=== PATIENT | female | born 1980 | race Caucasian/White ===

== ENCOUNTER → 2017-05-13 | Outpatient (CLI) | payer OTHER, BC ==
[~2017-05-13] MED LIST: CLONAZEPAM 1 MG1 M1 PO; DEPO-PROVE150 MG/1 M IM; DIPHENHYDRAM50 MG/M2 IM; ENDOCET 10-3251 EACH PO; FENTANYL 1100 MCG/HR TRANSDERM; FENTANYL PA50 MCG/HR TRANSDERM; MARINOL5 MG PO; MAXALT MLT10 MG PO; ZOFRAN8 MG PO
== END ==
LOC: HYPER 05-06 16:52
DX: L02.31 Cutaneous abscess of buttock (principal); R63.5 Abnormal weight gain; R10.12 Left upper quadrant pain; R56.9 Unspecified convulsions; K21.9 Gastro-esophageal reflux disease without esophagitis; E78.79 Other disorders of bile acid and cholesterol metabolism; R70.0 Elevated erythrocyte sedimentation rate; R11.0 Nausea; D64.9 Anemia, unspecified; J32.9 Chronic sinusitis, unspecified; F41.0 Panic disorder [episodic paroxysmal anxiety]; G62.9 Polyneuropathy, unspecified; Q45.3 Other congenital malformations of pancreas and pancreatic duct; G47.00 Insomnia, unspecified; L70.0 Acne vulgaris; D84.9 Immunodeficiency, unspecified; K29.70 Gastritis, unspecified, without bleeding; J30.9 Allergic rhinitis, unspecified; G44.009 Cluster headache syndrome, unspecified, not intractable; G43.909 Migraine, unspecified, not intractable, without status migrainosus

== ENCOUNTER → 2017-05-27 | Outpatient (CLI) | payer OTHER, BC | LOC: HYPER 06:58 | DX: L02.31 Cutaneous abscess of buttock (principal); R63.5 Abnormal weight gain; R10.12 Left upper quadrant pain; R56.9 Unspecified convulsions; K21.9 Gastro-esophageal reflux disease without esophagitis; E78.79 Other disorders of bile acid and cholesterol metabolism; R70.0 Elevated erythrocyte sedimentation rate; R11.0 Nausea; D64.9 Anemia, unspecified; J32.9 Chronic sinusitis, unspecified; F41.0 Panic disorder [episodic paroxysmal anxiety]; G62.9 Polyneuropathy, unspecified; Q45.3 Other congenital malformations of pancreas and pancreatic duct; G47.00 Insomnia, unspecified ==

== ENCOUNTER → 2017-06-14 | Outpatient (CLI) | payer OTHER, BC | LOC: HYPER 06:44 | DX: L02.31 Cutaneous abscess of buttock (principal) ==

== ENCOUNTER → 2017-06-29 | Outpatient (CLI) | payer OTHER, BC | LOC: HYPER 07:10 | DX: L02.31 Cutaneous abscess of buttock (principal); G43.909 Migraine, unspecified, not intractable, without status migrainosus ==

== ENCOUNTER → 2017-08-17 | Outpatient (CLI) | payer OTHER, BC | LOC: HYPER 06:47 | DX: T81.31XD Disruption of external operation (surgical) wound, not elsewhere classified, subsequent encounter (principal); G43.909 Migraine, unspecified, not intractable, without status migrainosus; Y83.8 Other surgical procedures as the cause of abnormal reaction of the patient, or of later complication, without mention of misadventure at the time of the procedure ==

== ENCOUNTER → 2017-08-31 | Outpatient (CLI) | payer OTHER, BC ==
[~2017-08-31] MED LIST changes: +FENTANYL PATCH75 MCG TRANSDERM; +FOLIC ACID1 MG PO; +OXYCODONE HCL10 MG PO; +PROTONIX40 M1 PO; +TRIAMTERENE/HCT1 CA1 PO; +VITAMIN B-6100 MG PO
== END ==
LOC: HYPER 06:52
DX: T81.31XD Disruption of external operation (surgical) wound, not elsewhere classified, subsequent encounter (principal); R63.5 Abnormal weight gain; R10.12 Left upper quadrant pain; R56.9 Unspecified convulsions; K21.9 Gastro-esophageal reflux disease without esophagitis; E78.79 Other disorders of bile acid and cholesterol metabolism; R70.0 Elevated erythrocyte sedimentation rate; R11.0 Nausea; D64.9 Anemia, unspecified; J32.9 Chronic sinusitis, unspecified; F41.0 Panic disorder [episodic paroxysmal anxiety]; G62.9 Polyneuropathy, unspecified; Q45.3 Other congenital malformations of pancreas and pancreatic duct; G47.00 Insomnia, unspecified; L70.0 Acne vulgaris; D84.9 Immunodeficiency, unspecified; K29.70 Gastritis, unspecified, without bleeding; J30.9 Allergic rhinitis, unspecified; G43.909 Migraine, unspecified, not intractable, without status migrainosus; G44.009 Cluster headache syndrome, unspecified, not intractable; Y83.8 Other surgical procedures as the cause of abnormal reaction of the patient, or of later complication, without mention of misadventure at the time of the procedure

== ENCOUNTER → 2017-09-29 | Outpatient (CLI) | payer OTHER, BC | LOC: HYPER 06:56 | DX: T81.31XD Disruption of external operation (surgical) wound, not elsewhere classified, subsequent encounter (principal); L02.31 Cutaneous abscess of buttock; R63.5 Abnormal weight gain; R10.12 Left upper quadrant pain; R56.9 Unspecified convulsions; K21.9 Gastro-esophageal reflux disease without esophagitis; R70.0 Elevated erythrocyte sedimentation rate; R11.0 Nausea; D64.9 Anemia, unspecified; J32.9 Chronic sinusitis, unspecified; F41.0 Panic disorder [episodic paroxysmal anxiety]; G62.9 Polyneuropathy, unspecified; G47.00 Insomnia, unspecified; L70.0 Acne vulgaris; D84.9 Immunodeficiency, unspecified; K29.70 Gastritis, unspecified, without bleeding; J30.9 Allergic rhinitis, unspecified; G43.909 Migraine, unspecified, not intractable, without status migrainosus; Y83.8 Other surgical procedures as the cause of abnormal reaction of the patient, or of later complication, without mention of misadventure at the time of the procedure ==

== ENCOUNTER → 2017-10-13 | Outpatient (CLI) | payer OTHER, BC | LOC: HYPER 06:51 | DX: T81.31XD Disruption of external operation (surgical) wound, not elsewhere classified, subsequent encounter (principal); L02.31 Cutaneous abscess of buttock; R63.5 Abnormal weight gain; R10.12 Left upper quadrant pain; R56.9 Unspecified convulsions; K21.9 Gastro-esophageal reflux disease without esophagitis; R70.0 Elevated erythrocyte sedimentation rate; R11.0 Nausea; D64.9 Anemia, unspecified; J32.9 Chronic sinusitis, unspecified; F41.0 Panic disorder [episodic paroxysmal anxiety]; G62.9 Polyneuropathy, unspecified; G47.00 Insomnia, unspecified; L70.0 Acne vulgaris; K29.70 Gastritis, unspecified, without bleeding; G43.909 Migraine, unspecified, not intractable, without status migrainosus; Y83.8 Other surgical procedures as the cause of abnormal reaction of the patient, or of later complication, without mention of misadventure at the time of the procedure ==

== ENCOUNTER → 2017-10-27 | Outpatient (CLI) | payer OTHER, BC | LOC: HYPER 06:49 | DX: T81.31XD Disruption of external operation (surgical) wound, not elsewhere classified, subsequent encounter (principal); L02.31 Cutaneous abscess of buttock; Y83.8 Other surgical procedures as the cause of abnormal reaction of the patient, or of later complication, without mention of misadventure at the time of the procedure ==

== ENCOUNTER → 2017-11-10 | Outpatient (CLI) | payer OTHER, BC | LOC: HYPER 07:07 | DX: T81.31XD Disruption of external operation (surgical) wound, not elsewhere classified, subsequent encounter (principal); L02.31 Cutaneous abscess of buttock; G43.909 Migraine, unspecified, not intractable, without status migrainosus; Z90.49 Acquired absence of other specified parts of digestive tract; Y83.8 Other surgical procedures as the cause of abnormal reaction of the patient, or of later complication, without mention of misadventure at the time of the procedure ==

== ENCOUNTER → 2017-11-24 | Outpatient (CLI) | payer OTHER, BC | LOC: HYPER 06:44 | DX: T81.31XD Disruption of external operation (surgical) wound, not elsewhere classified, subsequent encounter (principal); L02.31 Cutaneous abscess of buttock; E78.79 Other disorders of bile acid and cholesterol metabolism; K21.9 Gastro-esophageal reflux disease without esophagitis; J32.9 Chronic sinusitis, unspecified; R10.12 Left upper quadrant pain; F41.0 Panic disorder [episodic paroxysmal anxiety]; G62.9 Polyneuropathy, unspecified; Q45.3 Other congenital malformations of pancreas and pancreatic duct; G47.00 Insomnia, unspecified; G43.909 Migraine, unspecified, not intractable, without status migrainosus; Y83.8 Other surgical procedures as the cause of abnormal reaction of the patient, or of later complication, without mention of misadventure at the time of the procedure ==

== ENCOUNTER → 2017-12-07 | Outpatient (CLI) | payer OTHER, BC | LOC: HYPER 06:51 | DX: T81.31XD Disruption of external operation (surgical) wound, not elsewhere classified, subsequent encounter (principal); L02.31 Cutaneous abscess of buttock; R63.5 Abnormal weight gain; R10.12 Left upper quadrant pain; R26.9 Unspecified abnormalities of gait and mobility; K21.9 Gastro-esophageal reflux disease without esophagitis; E78.79 Other disorders of bile acid and cholesterol metabolism; R70.0 Elevated erythrocyte sedimentation rate; R11.0 Nausea; F41.0 Panic disorder [episodic paroxysmal anxiety]; G47.00 Insomnia, unspecified; L70.0 Acne vulgaris; J30.9 Allergic rhinitis, unspecified; Y83.8 Other surgical procedures as the cause of abnormal reaction of the patient, or of later complication, without mention of misadventure at the time of the procedure ==

== ENCOUNTER → 2017-12-22 | Outpatient (CLI) | payer OTHER, BC | LOC: HYPER 07:07 | DX: T81.31XD Disruption of external operation (surgical) wound, not elsewhere classified, subsequent encounter (principal); E78.79 Other disorders of bile acid and cholesterol metabolism; K21.9 Gastro-esophageal reflux disease without esophagitis; D64.9 Anemia, unspecified; Q45.3 Other congenital malformations of pancreas and pancreatic duct; G47.00 Insomnia, unspecified; D84.9 Immunodeficiency, unspecified; K29.70 Gastritis, unspecified, without bleeding; R70.0 Elevated erythrocyte sedimentation rate; R10.12 Left upper quadrant pain; G43.909 Migraine, unspecified, not intractable, without status migrainosus; G62.9 Polyneuropathy, unspecified; J30.9 Allergic rhinitis, unspecified; J32.9 Chronic sinusitis, unspecified; F41.0 Panic disorder [episodic paroxysmal anxiety]; Y83.8 Other surgical procedures as the cause of abnormal reaction of the patient, or of later complication, without mention of misadventure at the time of the procedure ==

== ENCOUNTER → 2018-03-02 | Outpatient (CLI) | payer OTHER, BC | LOC: HYPER 07:09 | DX: T81.31XD Disruption of external operation (surgical) wound, not elsewhere classified, subsequent encounter (principal); L02.31 Cutaneous abscess of buttock; R63.5 Abnormal weight gain; R56.9 Unspecified convulsions; K21.9 Gastro-esophageal reflux disease without esophagitis; E78.79 Other disorders of bile acid and cholesterol metabolism; R70.0 Elevated erythrocyte sedimentation rate; R11.0 Nausea; D64.9 Anemia, unspecified; J32.9 Chronic sinusitis, unspecified; F41.0 Panic disorder [episodic paroxysmal anxiety]; G62.9 Polyneuropathy, unspecified; Q45.3 Other congenital malformations of pancreas and pancreatic duct; G47.00 Insomnia, unspecified; L70.0 Acne vulgaris; D84.9 Immunodeficiency, unspecified; K29.70 Gastritis, unspecified, without bleeding; J30.9 Allergic rhinitis, unspecified; G43.909 Migraine, unspecified, not intractable, without status migrainosus; Y83.8 Other surgical procedures as the cause of abnormal reaction of the patient, or of later complication, without mention of misadventure at the time of the procedure ==

== ENCOUNTER → 2019-07-27 | Outpatient (CLI) | payer OTHER, BC | LOC: HYPER 05:17 | DX: T81.31XD Disruption of external operation (surgical) wound, not elsewhere classified, subsequent encounter (principal); L02.31 Cutaneous abscess of buttock; L98.412 Non-pressure chronic ulcer of buttock with fat layer exposed; G43.909 Migraine, unspecified, not intractable, without status migrainosus; R56.9 Unspecified convulsions; F41.9 Anxiety disorder, unspecified; F32.9 Major depressive disorder, single episode, unspecified; Z90.49 Acquired absence of other specified parts of digestive tract; Y83.8 Other surgical procedures as the cause of abnormal reaction of the patient, or of later complication, without mention of misadventure at the time of the procedure ==

== ENCOUNTER 2019-07-28 15:08 | Emergency (ER) | payer OTHER, BC ==
[~2019-07-28] VITALS: Ht 154.9 cm; Wt 65.8 kg
[2019-07-28 16:46] VITALS: BP 126/74
== END 2019-07-28 16:51 | disposition home or self-care (01) ==
LOC: ER 15:08
DX: L02.31 Cutaneous abscess of buttock (principal); K21.9 Gastro-esophageal reflux disease without esophagitis; I10 Essential (primary) hypertension; G43.909 Migraine, unspecified, not intractable, without status migrainosus; Z48.01 Encounter for change or removal of surgical wound dressing; Z90.49 Acquired absence of other specified parts of digestive tract; Z86.2 Personal history of diseases of the blood and blood-forming organs and certain disorders involving the immune mechanism; Z86.14 Personal history of Methicillin resistant Staphylococcus aureus infection; Z88.6 Allergy status to analgesic agent; Z88.1 Allergy status to other antibiotic agents; Z88.5 Allergy status to narcotic agent; Z91.041 Radiographic dye allergy status; Z88.2 Allergy status to sulfonamides

== ENCOUNTER → 2019-08-02 | Outpatient (CLI) | payer OTHER, BC | LOC: HYPER | DX: T81.31XD Disruption of external operation (surgical) wound, not elsewhere classified, subsequent encounter (principal); L98.412 Non-pressure chronic ulcer of buttock with fat layer exposed; L02.31 Cutaneous abscess of buttock; G43.909 Migraine, unspecified, not intractable, without status migrainosus; K21.9 Gastro-esophageal reflux disease without esophagitis; F41.9 Anxiety disorder, unspecified; F32.9 Major depressive disorder, single episode, unspecified; Z90.49 Acquired absence of other specified parts of digestive tract; Y83.8 Other surgical procedures as the cause of abnormal reaction of the patient, or of later complication, without mention of misadventure at the time of the procedure ==

== ENCOUNTER → 2019-08-16 | Outpatient (CLI) | payer OTHER, BC | LOC: HYPER 16:55 | DX: T81.31XD Disruption of external operation (surgical) wound, not elsewhere classified, subsequent encounter (principal); L98.412 Non-pressure chronic ulcer of buttock with fat layer exposed; L02.31 Cutaneous abscess of buttock; G43.909 Migraine, unspecified, not intractable, without status migrainosus; K21.9 Gastro-esophageal reflux disease without esophagitis; F41.9 Anxiety disorder, unspecified; F32.9 Major depressive disorder, single episode, unspecified; Z90.49 Acquired absence of other specified parts of digestive tract; Y83.8 Other surgical procedures as the cause of abnormal reaction of the patient, or of later complication, without mention of misadventure at the time of the procedure ==

== ENCOUNTER → 2019-08-31 | Outpatient (CLI) | payer OTHER, BC | LOC: HYPER 11:03 | DX: T81.31XD Disruption of external operation (surgical) wound, not elsewhere classified, subsequent encounter (principal); L97.412 Non-pressure chronic ulcer of right heel and midfoot with fat layer exposed; L02.31 Cutaneous abscess of buttock; G43.909 Migraine, unspecified, not intractable, without status migrainosus; R56.9 Unspecified convulsions; F41.9 Anxiety disorder, unspecified; F32.9 Major depressive disorder, single episode, unspecified; Z90.49 Acquired absence of other specified parts of digestive tract; Y83.8 Other surgical procedures as the cause of abnormal reaction of the patient, or of later complication, without mention of misadventure at the time of the procedure ==

== ENCOUNTER → 2019-09-14 | Outpatient (CLI) | payer OTHER, BC | LOC: HYPER 15:20 | DX: T81.31XD Disruption of external operation (surgical) wound, not elsewhere classified, subsequent encounter (principal); L98.412 Non-pressure chronic ulcer of buttock with fat layer exposed; L02.31 Cutaneous abscess of buttock; G43.909 Migraine, unspecified, not intractable, without status migrainosus; F41.9 Anxiety disorder, unspecified; F32.9 Major depressive disorder, single episode, unspecified; Z90.49 Acquired absence of other specified parts of digestive tract; Y83.8 Other surgical procedures as the cause of abnormal reaction of the patient, or of later complication, without mention of misadventure at the time of the procedure ==

== ENCOUNTER → 2019-09-25 | Outpatient (CLI) | payer OTHER, BC | LOC: HYPER 14:03 | DX: T81.31XD Disruption of external operation (surgical) wound, not elsewhere classified, subsequent encounter (principal); L98.412 Non-pressure chronic ulcer of buttock with fat layer exposed; L02.31 Cutaneous abscess of buttock; G43.909 Migraine, unspecified, not intractable, without status migrainosus; G62.9 Polyneuropathy, unspecified; K21.9 Gastro-esophageal reflux disease without esophagitis; F32.9 Major depressive disorder, single episode, unspecified; F41.9 Anxiety disorder, unspecified; Z90.49 Acquired absence of other specified parts of digestive tract; Y83.8 Other surgical procedures as the cause of abnormal reaction of the patient, or of later complication, without mention of misadventure at the time of the procedure ==

== ENCOUNTER → 2019-10-09 | Outpatient (CLI) | payer OTHER, BC | LOC: HYPER 12:20 | DX: T86.828 Other complications of skin graft (allograft) (autograft) (principal); T81.31XD Disruption of external operation (surgical) wound, not elsewhere classified, subsequent encounter; L98.412 Non-pressure chronic ulcer of buttock with fat layer exposed; L02.31 Cutaneous abscess of buttock; G62.9 Polyneuropathy, unspecified; F41.9 Anxiety disorder, unspecified; F32.9 Major depressive disorder, single episode, unspecified; K21.9 Gastro-esophageal reflux disease without esophagitis; G47.00 Insomnia, unspecified; G43.909 Migraine, unspecified, not intractable, without status migrainosus; Z90.49 Acquired absence of other specified parts of digestive tract; Y83.8 Other surgical procedures as the cause of abnormal reaction of the patient, or of later complication, without mention of misadventure at the time of the procedure; Y83.2 Surgical operation with anastomosis, bypass or graft as the cause of abnormal reaction of the patient, or of later complication, without mention of misadventure at the time of the procedure ==

== ENCOUNTER → 2019-10-12 | Outpatient (CLI) | payer OTHER, BC | LOC: HYPER 10:02 | DX: T81.31XD Disruption of external operation (surgical) wound, not elsewhere classified, subsequent encounter (principal); L98.412 Non-pressure chronic ulcer of buttock with fat layer exposed; L02.31 Cutaneous abscess of buttock; G43.909 Migraine, unspecified, not intractable, without status migrainosus; K21.9 Gastro-esophageal reflux disease without esophagitis; F41.9 Anxiety disorder, unspecified; F32.9 Major depressive disorder, single episode, unspecified; Z90.49 Acquired absence of other specified parts of digestive tract; Y83.8 Other surgical procedures as the cause of abnormal reaction of the patient, or of later complication, without mention of misadventure at the time of the procedure ==

== ENCOUNTER → 2019-10-24 | Outpatient (CLI) | payer OTHER, BC | LOC: HYPER 11:06 | DX: T81.31XD Disruption of external operation (surgical) wound, not elsewhere classified, subsequent encounter (principal); L98.412 Non-pressure chronic ulcer of buttock with fat layer exposed; L02.31 Cutaneous abscess of buttock; G43.909 Migraine, unspecified, not intractable, without status migrainosus; F41.9 Anxiety disorder, unspecified; F32.9 Major depressive disorder, single episode, unspecified; Z90.49 Acquired absence of other specified parts of digestive tract; Y83.8 Other surgical procedures as the cause of abnormal reaction of the patient, or of later complication, without mention of misadventure at the time of the procedure ==

== ENCOUNTER 2019-10-31 16:25 | Inpatient (IN) | payer OTHER, BC ==
[~2019-10-31] VITALS: Ht 154.9 cm; Wt 64.3 kg
--- NOTE | ~2019-10-31 | HC ---
[facility] [place] [address] CONSULTATION Name: YEN MARSHALL Judith Room #: 453-P ADM IN M.R.#: [id number] Admission: 10/31/19 Attend Phys: Delroy Ovalle MD Discharge: Date of : 78 Report #: [id number] THIS REPORT FOR: cc: JESUSITA - Kay family physician/PCP JESUSITA - Kay family physician/PCP Eliceo Almanza MD ~ THIS REPORT FOR: //name// CC: Delroy MC physician/PCP DATE OF SERVICE: 11/01/2019 ATTENDING PHYSICIAN: Dr. Ovalle. CONSULTING PHYSICIAN: Dr. Almanza. REASON FOR CONSULTATION: Bilateral gluteal abscesses. ASSESSMENT: Bilateral gluteal wounds with associated abscess. RECOMMENDATIONS: 1. Thank you for the consultation. I will follow along. 2. Planning for incision and debridement tomorrow at 7:30 a.m. 3. N.p.o. at midnight for procedure. HISTORY OF PRESENT ILLNESS: The patient is a 39-year-old female who I met in clinic last week. The patient has developed worsening gluteal wounds with associated abscesses. She is hospitalized for further treatment. PAST MEDICAL HISTORY: 1. History of MRSA. 2. GERD. 3. Migraines. 4. Seizures. 5. Anemia. 6. Chronic pancreatitis. 7. Depression/anxiety. 8. Hiatal hernia. 9. IgG deficiency. PAST SURGICAL HISTORY: 1. Laparoscopic cholecystectomy. 2. Right knee arthroplasty. 3. Sinus surgery. 4. Oral surgery. [facility] [place] [address] [place] [address] CONSULTATION Name: YEN MARSHALL Judith Room #: 453-P [facility] IN M.R.#: [id number] Admission: 10/31/19 Attend Phys: Delroy Ovalle MD Discharge: Date of : 78 Report #: [id number] 5. Bilateral buttock wound debridements. 6. ERCP with stent placement. 7. Kidney stones. 8. EGD. SOCIAL HISTORY: Denies use of alcohol, tobacco or recreational drugs. FAMILY HISTORY: Denies coagulopathy or malignancy. REVIEW OF SYSTEMS: CONSTITUTIONAL: No fever. No chills. HEENT: Denies blurring of vision, double vision, headaches, hearing loss, sinus drainage or sore throat. Denies blurring of vision, double vision, headaches, hearing loss, sinus drainage or sore throat. CARDIOVASCULAR: Denies chest pain, palpitations, orthopnea or paroxysmal nocturnal dyspnea. RESPIRATORY: Denies cough, wheezing, hemoptysis, or shortness of air. GASTROINTESTINAL: No nausea. No vomiting. No diarrhea. No Heartburn. No nausea. No vomiting. No diarrhea. No Heartburn. GENITOURINARY: Denies dysuria or hematuria or kidney stones. No urinary frequency, urgency or incontinence. Denies dysuria or hematuria or kidney stones. No urinary frequency, urgency or incontinence. MUSCULOSKELETAL: No joint pain. No muscle pain. NEUROLOGICAL: Denies tremor, stroke or seizure. Denies tremor, stroke or seizure. HEMATOLOGIC/LYMPHATICS: Denies easy bruising, easy bleeding or enlarged lymph nodes. SKIN: Please see above and below ENDOCRINE: No heat or cold intolerance PSYCHIATRIC: Denies depression, anxiety, or schizophrenia. PHYSICAL EXAMINATION: VITAL SIGNS: Temperature 36.8, pulse 78, respiratory rate 17, blood pressure 101/57, pulse ox 99% on room air. GENERAL: No apparent distress, alert and oriented x3. HEENT: PERRLA, EOMI, MMM, NCAT NECK: Supple. No LAD CARDIOVASCULAR: Regular rhythm and rate. Hemodynamically stable. Normal capillary refill. Regular rhythm and rate. Hemodynamically stable. Normal capillary refill. PULMONARY: Nonlabored. Clear to auscultation bilaterally ABDOMEN: Soft, nontender to palpation, no guarding, no rigidity, no rebound tenderness, no hernias. EXTREMITIES: Calves soft, nontender, no edema. SKIN: Bilateral large gluteal wounds with associated tenderness to palpation and fluctuance. No current drainage from either wound. [address] [address] CONSULTATION Name: YEN MARSHALL Judith Room #: 453-P [facility] IN .R.#: [id number] Admission: 10/31/19 Attend Phys: Delroy Ovalle MD Discharge: Date of : 78 Report #: [id number] PSYCHIATRIC: Normal mood and affect Normal mood and affect NEUROLOGICAL: Grossly intact. CN II-XII grossly intact. MUSCULOSKELETAL: 5/5 strength in upper extremities and lower extremities bilaterally LYMPHATICS: No cervical, inguinal, or supraclavicular lymphadenopathy. LABORATORY DATA: White blood count 11.2, hemoglobin 8.7, hematocrit 27.9, platelets 465. Sodium 138, potassium 3.7, creatinine 0.9. IMAGING: CT of the pelvis, impression: Bilateral gluteal abscesses with soft tissue ulcer seen on the right as described above with extension of the infection/inflammation in the anterior compartment of the proximal lower extremities bilaterally without osseous erosion or bony destruction. By: [id number] Eliceo Almanza MD /nt
[~2019-10-31 16:25] MED LIST changes: -BENADRYL25 MG IV PUSH; -FLONASE 0.05%50 MCG NARES; -LOTRISONE CREAM15 GM TP; -OXYCODONE HCL E10 MG PO
[2019-10-31 18:44] LABS: HEMATOCRIT 27.9 % (37.0-47.0); HEMOGLOBIN 8.7 gm/dL (12.0-15.0); MCH 24.6 pg (26.0-34.0); MCHC 31.3 g/dL (28.0-37.0); MCV 78.6 fL (80.0-100.0); RBC 3.55 mil/uL (4.20-5.00); RDW 17.3 % (10.5-14.5); WBC 11.2 thou/uL (4.0-11.0)
[2019-10-31] MEDS ORDERED: MAXALT MLT10 MG PO (18:45)
[2019-10-31 19:00] LABS: CREATININE 0.9 mg/dL (0.6-1.0); POTASSIUM 3.7 mmol/L (3.5-5.1)
--- NOTE | 2019-10-31 19:13 | NUR ---
VASCULAR ACCESS ATTEMPTED SEVERAL UNSUCCESSFUL PIV'S. DISCUSSED MIDLINE BENEFITS AND RISK WITH PT, VERBALIZED UNDERSTANDING AND CONSENT TO PROCEDE. LATASAH BASILIC WAS DEEP BUT WIDELY PATENT WITH USG. 4FR POWER MIDLINE TRIMMED TO 10CM INSERTED TO 0CM EXTERNAL WITH BRISK BR. MIDLINE RELEASED FOR IMMEDIATE USE TO SAADIA YOO PER PROTOCOL.
--- NOTE | 2019-10-31 19:33 | NUR ---
Pt arrived at 5:45 pm as a direct admit of Dr. Palencia under the care of Dr. Ovalle. Informed Dr. Ovalle of the pt's arrival awaiting admission orders. IV had to be done by IV team d/t deep veins. Partial admission done, check list given to the night nurse. Pt stated she is allergic to latex. No lsigns or verbvalizations of distress have been noted. Endorsed to the night nurse.
[2019-10-31 20:11] VITALS: BP 122/75
[2019-11-01] MEDS ORDERED: FLONASE 0.05%50 MCG NARES (00:38)
[2019-11-01] MEDS ORDERED: LOTRISONE CREAM15 GM TP (00:40)
[2019-11-01] MEDS ORDERED: OXYCODONE HCL E10 MG PO (00:45)
[2019-11-01] MEDS ORDERED: BENADRYL25 MG IV PUSH (00:51)
--- NOTE | 2019-11-01 04:10 | NUR ---
PATIENT AOX4 MAKES NEEDS KNOWN. PATIENT HAS A WOUND ON LEFT BUTTOCK CHEEK 4X2X2.PATIENT WOUND IS TUNNELED. PAIN CONTROLLED THIS SHIFT.PATIENT HAD CT ON THE PELVICS THIS SHIFT.PATIENT IN BED ASLEEP AT THIS TIME BREATHING REGULAR AND UNLABOURED.
[2019-11-01 04:34] VITALS: BP 101/57
--- NOTE | 2019-11-01 10:13 | NUR ---
ORDERS RECEIVED FOR EVAL AND TREAT. SPOKE WITH Pt WHO STATES SHE IS SORE BUT NOT HAVING ANY PROBLEMS WITH MOBILITY AND HAS ALREADY BEEN WALKING TO THE BATHROOM. Pt DECLINING FORMAL P.T. EVAL. Pt TENTATIVELY HAVING I AND D IN AM. Pt TOLD THAT IF SHE IS HAVING MORE DIFFICULTY AFTER SURGERY SHE COULD REQUEST THERAPY COME AND EVALUATE HER THEN.
--- NOTE | 2019-11-01 11:11 | NUR ---
PATIENT REPORTS SHE IS DOING FINE WITH ADLS, DECLINED FORMAL OT EVALUATION. EDUCATED PATIENT ON LETTING NURSING STAFF KNOW IF SHE HAS ANY DECLINE IN ADLS.
--- NOTE | 2019-11-01 14:51 | NUR ---
Assess due to dx gluteal wounds due to cellulitis/abscess. Surgery debridement pending. Pt drowsy but able to state eats adequately and has no wt changes from a reported usual of 135-140 lb. Diet newly advanced and able to order own foods. Low nutrition risk
[2019-11-01 15:35] VITALS: BP 140/52
[2019-11-01 15:51] LABS: ALBUMIN 3.2 g/dL (3.4-5.0); DIRECT BILIRUBIN < 0.1 mg/dL (<0.1-0.2); LIPASE 37 U/L (73-393); SGOT 26 U/L (15-37); SGPT 26 U/L (30-65); TOTAL BILIRUBIN 0.2 mg/dL (<0.1-1.0); TOTAL PROTEIN 6.2 g/dL (6.4-8.2)
--- NOTE | 2019-11-01 18:16 | NUR ---
Assumed pt care at 7am.Pt in bed sleeping but arousable.Pt was npo for surgery.When Dr Almanza rounded on pt early this am,new order noted.Late breakfast ordered but it wasn't delivered by seafood technology specialist.Pt was upset but tray delivered at lunch and dinner.All meds given as ordered.Dr Ovalle and Norm here order noted.Georgie applied to bilat buttock as ordered.Pt will be going for surgery in am.
[2019-11-01 19:47] VITALS: BP 145/68
[2019-11-02 06:10] LABS: HEMATOCRIT 25.8 % (37.0-47.0); HEMOGLOBIN 8.3 gm/dL (12.0-15.0); MCH 25.5 pg (26.0-34.0); MCHC 32.1 g/dL (28.0-37.0); MCV 79.3 fL (80.0-100.0); RBC 3.25 mil/uL (4.20-5.00); RDW 17.6 % (10.5-14.5); WBC 8.6 thou/uL (4.0-11.0)
--- NOTE | 2019-11-02 08:25 | NUR ---
Pt. rested quietly during the night when checked on during frequent rounds. She was given po pain meds for c/o buttocks pain (see emar) with some relief. Pt. also requesting ivp benadryl (see emar) and was given.
[2019-11-02 10:00] VITALS: BP 128/73
--- NOTE | 2019-11-02 11:00 | NUR ---
Pt has gone for surgery at 0615 per noc rn report before the staqrt of shift. Pt returned to floor at 0935 in staqble condition.Late breqakfast tray given with am meds and well tolerated.Mom here to vosit and updates given.No verbal c/o at present.Will continue to monitor.
[2019-11-02 11:06] VITALS: BP 133/69
[2019-11-02 17:10] VITALS: BP 130/72
[2019-11-02 19:38] VITALS: BP 136/61
[2019-11-03 07:55] VITALS: BP 103/52
--- NOTE | 2019-11-03 09:27 | NUR ---
PT ADMITTED RELATED TO GLUTEAL WOUND. CM REVIEWED CHART AND SPOKE WITH CARE TEAM. CM MET WITH PT AT BEDSIDE. PT IS A&O X4. CM ROLE INTRODUCED. PT INDICATED SHE LIVES IN A HOUSE WITH HER PARENTS WITH 2 STEPS TO ENTER AND 10 STEPS INSIDE. 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 PT'S PCP IS [facility]. CM TO FOLLOW INDICATED WITH DC PLANNING.
[2019-11-03 12:03] VITALS: BP 112/73
--- NOTE | 2019-11-03 13:07 | NUR ---
CARE TEAM INDICATED THAT PT IS MEDICALLY STABLE TO DC HOME THIS DAY. CARE TEAM INDICATED THAT PT HAS FAMILY WHO ARE ABLE TO ASSIST WITH WOUND CARE NEEDS. NO OTHER CM INTERVENTION. INDICATED. CASE CLOSED.
[2019-11-03 13:33] VITALS: BP 112/73
--- NOTE | 2019-11-03 16:23 | NUR ---
Patient educated of discharge orders per this nurse and Dr Jimenez's. Patient began crying, stating "I am in too much pain to go home!" Patient was difficult to understand, as she was well medicated (she has an implanted Morphine device and was medicated with Oxycodone and Benadryl as well). Patient's mother came, was upset that there were no prescriptions for Narcotics to take home. Patient and mother educated to "follow up with PCP for any further care." Pictures taken of wounds per protocol, dressed as ordered. Patient's mother redressed the wounds, as patient pulled some of the dressings off. Patient's vital signs stable. IV Team notified of Midline removal. Midline removed without complications. Catheter intake, measured 12cm. Patient tolerated well. Patient left with mother and all belongings at 1605. Mother signed discharge paperwork. POC followed.
--- NOTE | 2019-11-06 09:08 | HC ---
[facility] [place] [address] CONSULTATION Name: YEN MARSHALL Room #: 453-P [facility] IN M.R.#: [id number] Admission: 10/31/19 Attend Phys: Delroy Ovalle MD Discharge: 11/03/19 Date of : 78 Report #: [id number] THIS REPORT FOR: cc: JESUSITA - No family physician/PCP JESUSITA - No family physician/PCP Juventino Andrews MD ~ THIS REPORT FOR: //name// CC: Delroy MC physician/PCP DATE OF SERVICE: 11/01/2019 CHIEF COMPLAINT: Gluteal abscesses. HISTORY OF PRESENT ILLNESS: This is a 39-year-old female patient with a history of chronic pancreatitis, who developed increasing gluteal cellulitis and possible abscesses and was admitted to the hospital for evaluation and treatment. The patient has a history of receiving intramuscular medications in the gluteal region and has had lots of scar tissue as a result of that. She no longer receives medications in that manner, but has been scheduled recently for a surgical incision and drainage with Dr. Eliceo Almanza for this ; however, her cellulitis developed on the opposite side and she is admitted now PAST MEDICAL HISTORY: Positive for history of migraines, history of seizure disorder, chronic pancreatitis. She has had ERCP with stent placement, depression, anxiety, previous kidney stones. She has an intrathecal pain pump, right knee arthroscopy and previous cholecystectomy. SOCIAL HISTORY: The patient denies alcohol or tobacco use or recreational drug use. CURRENT MEDICATIONS: Include clonazepam, Protonix, vitamin B6, tizanidine, hydroxyzine, diphenhydramine, Zofran, Maxalt, Depo-Provera. ALLERGIES: ATROPINE, CONTRAST DYE, DROPERIDOL, KETOROLAC, LORAZEPAM, PROMETHAZINE, CEFDINIR, CLINDAMYCIN, LATEX, LEVAQUIN, NONSTEROIDAL INFLAMMATORY AGENTS, PROCHLORPERAZINE, SULFA, TETRACYCLINE AND TELITHROMYCIN. FAMILY HISTORY: Noncontributory. REVIEW OF SYSTEMS: CONSTITUTIONAL: The patient denies fever, chills or weight loss. NEUROLOGICAL: The patient denies focal weakness, numbness or tingling. EYES: The patient denies any visual changes, redness or drainage. ENT: The patient denies earache, nasal drainage, sore throat. [address] [address] CONSULTATION Name: YEN MARSHALL Judith Room #: 453-P [facility]#: [id number] Admission: 10/31/19 Attend Phys: Delroy Ovalle MD Discharge: 11/03/19 Date of : 78 Report #: [id number] CARDIOVASCULAR: The patient denies chest pain, palpitations or diaphoresis. PULMONARY: The patient denies cough or shortness of breath. GASTROINTESTINAL: The patient denies nausea, vomiting, diarrhea or abdominal pain. ORTHOPEDIC: The patient does complain of pain in bilateral gluteal region. Other systems in a 14-point review of systems are negative. PHYSICAL EXAMINATION: VITAL SIGNS: At this time include temperature 36.8, pulse 78, respiratory rate 17, blood pressure 101/57. GENERAL: This is a somewhat chronically ill-appearing female patient who appears to be in mild discomfort. HEENT: Head normocephalic. Nose clear. NECK: Supple. ABDOMEN: Soft. Bowel sounds present. EXTREMITIES: Examination of the gluteal region demonstrates significant scarring, small ulceration noted. Moderate erythema, tenderness and some induration are noted bilaterally. Lower extremities without clubbing or cyanosis. NEUROLOGIC: The patient is alert and oriented and appropriate. LABORATORY DATA: White blood cell count 11.2, hemoglobin 8.7. Sodium 138, potassium 3.7, chloride 100, CO2 of 29, BUN 11, creatinine 0.9 and glucose of 98. CT scan of the pelvis demonstrates bilateral gluteal abscesses with soft tissue ulcer seen on the right with extension of infection or inflammation into the anterior compartment of the proximal lower extremities bilaterally without osseous erosion or bony destruction. CLINICAL IMPRESSION: 1. Bilateral gluteal abscesses. 2. Chronic pancreatitis. 3. IgG deficiency. RECOMMENDATIONS: At this point in time, we will recommend a low air loss mattress, 2 hour turning and repositioning, ongoing nutritional support. She will need surgical intervention, was scheduled to go to the operating room with Dr. Eliceo Almanza at 7:30 tomorrow morning. The patient is agreeable with current plan of care. I appreciate being asked to see her in consultation. <ELECTRONICALLY SIGNED> By: Juventino Andrews MD 11/06/19 [id number] Juventino Andrews MD /nt
== END 2019-11-03 16:05 | disposition home or self-care (01) | DRG 571 ==
LOC: 4S 16:25 → 4W 16:26 → ENTRNSPT 11-03 15:38 → EDTRNSPTSTS 11-03 15:40 → 4W 11-03 16:05
PROVIDERS: Nurse Practitioner; ADMIT Hospitalist
PROC: 05HC33Z Insertion of Infusion Device into Left Basilic Vein, Percutaneous Approach (ICD-10-PCS; 2019-10-31)
PROC: 0JB70ZZ Excision of Back Subcutaneous Tissue and Fascia, Open Approach (ICD-10-PCS; principal; 2019-11-02)
DX: L03.317 Cellulitis of buttock (principal); K86.1 Other chronic pancreatitis; E44.1 Mild protein-calorie malnutrition; D80.3 Selective deficiency of immunoglobulin G [IgG] subclasses; L02.31 Cutaneous abscess of buttock; K21.9 Gastro-esophageal reflux disease without esophagitis; G43.909 Migraine, unspecified, not intractable, without status migrainosus; F32.9 Major depressive disorder, single episode, unspecified; G89.29 Other chronic pain; L89.159 Pressure ulcer of sacral region, unspecified stage; F41.9 Anxiety disorder, unspecified; G40.909 Epilepsy, unspecified, not intractable, without status epilepticus; Z88.2 Allergy status to sulfonamides; Z88.8 Allergy status to other drugs, medicaments and biological substances; Z86.14 Personal history of Methicillin resistant Staphylococcus aureus infection; Z90.49 Acquired absence of other specified parts of digestive tract; Z87.442 Personal history of urinary calculi; Z88.1 Allergy status to other antibiotic agents; Z91.041 Radiographic dye allergy status; Z91.040 Latex allergy status; Z68.26 Body mass index [BMI] 26.0-26.9, adult
CPT/HCPCS: 10047; 27000; 50010

== ENCOUNTER → 2019-10-31 | Outpatient (CLI) | payer OTHER, BC ==
[~2019-10-31] MED LIST changes: +BENADRYL25 MG IV PUSH; +DIPHENHYDR50 MG/1 ML IM; +FLONASE 0.05%50 MCG NARES; +FOLIC ACID0.4 MG PO; +HYDROXYZINE HCL25 M2 PO; +LOTRISONE CREAM15 GM TP; +OXYCODONE HCL E10 MG PO; +ZANAFLEX4 MG PO
== END ==
LOC: HYPER 14:22
DX: T81.31XD Disruption of external operation (surgical) wound, not elsewhere classified, subsequent encounter (principal); L98.412 Non-pressure chronic ulcer of buttock with fat layer exposed; L02.31 Cutaneous abscess of buttock; G43.909 Migraine, unspecified, not intractable, without status migrainosus; F41.9 Anxiety disorder, unspecified; F32.9 Major depressive disorder, single episode, unspecified; Z90.49 Acquired absence of other specified parts of digestive tract; Y83.8 Other surgical procedures as the cause of abnormal reaction of the patient, or of later complication, without mention of misadventure at the time of the procedure

== ENCOUNTER → 2019-11-09 | Outpatient (CLI) | payer OTHER, BC ==
[~2019-11-09] MED LIST changes: +BENADRYL25 MG IV PUSH; +FLONASE 0.05%50 MCG NARES; +LOTRISONE CREAM15 GM TP; +OXYCODONE HCL E10 MG PO
== END ==
LOC: HYPER 14:31
DX: T81.31XD Disruption of external operation (surgical) wound, not elsewhere classified, subsequent encounter (principal); L98.412 Non-pressure chronic ulcer of buttock with fat layer exposed; L02.31 Cutaneous abscess of buttock; G43.909 Migraine, unspecified, not intractable, without status migrainosus; F41.9 Anxiety disorder, unspecified; F32.9 Major depressive disorder, single episode, unspecified; Z90.49 Acquired absence of other specified parts of digestive tract; Y83.8 Other surgical procedures as the cause of abnormal reaction of the patient, or of later complication, without mention of misadventure at the time of the procedure

== ENCOUNTER → 2019-11-23 | Outpatient (CLI) | payer OTHER, BC | LOC: HYPER 14:47 | DX: T81.31XD Disruption of external operation (surgical) wound, not elsewhere classified, subsequent encounter (principal); L02.31 Cutaneous abscess of buttock; L98.412 Non-pressure chronic ulcer of buttock with fat layer exposed; G43.909 Migraine, unspecified, not intractable, without status migrainosus; G62.9 Polyneuropathy, unspecified; K21.9 Gastro-esophageal reflux disease without esophagitis; F41.9 Anxiety disorder, unspecified; F32.9 Major depressive disorder, single episode, unspecified; Z90.49 Acquired absence of other specified parts of digestive tract; Y83.8 Other surgical procedures as the cause of abnormal reaction of the patient, or of later complication, without mention of misadventure at the time of the procedure ==

== ENCOUNTER → 2019-12-07 | Outpatient (CLI) | payer OTHER, BC | LOC: HYPER 15:28 | DX: T81.31XD Disruption of external operation (surgical) wound, not elsewhere classified, subsequent encounter (principal); L98.412 Non-pressure chronic ulcer of buttock with fat layer exposed; L02.31 Cutaneous abscess of buttock; G43.909 Migraine, unspecified, not intractable, without status migrainosus; F41.9 Anxiety disorder, unspecified; F32.9 Major depressive disorder, single episode, unspecified; Z90.49 Acquired absence of other specified parts of digestive tract; Y83.8 Other surgical procedures as the cause of abnormal reaction of the patient, or of later complication, without mention of misadventure at the time of the procedure ==

== ENCOUNTER → 2019-12-14 | Outpatient (CLI) | payer OTHER, BC | LOC: HYPER 14:38 | DX: T81.31XD Disruption of external operation (surgical) wound, not elsewhere classified, subsequent encounter (principal); L98.412 Non-pressure chronic ulcer of buttock with fat layer exposed; L02.31 Cutaneous abscess of buttock; G43.909 Migraine, unspecified, not intractable, without status migrainosus; G62.9 Polyneuropathy, unspecified; K21.9 Gastro-esophageal reflux disease without esophagitis; F41.9 Anxiety disorder, unspecified; F32.9 Major depressive disorder, single episode, unspecified; Z90.49 Acquired absence of other specified parts of digestive tract; Y83.8 Other surgical procedures as the cause of abnormal reaction of the patient, or of later complication, without mention of misadventure at the time of the procedure ==

== ENCOUNTER → 2019-12-20 | Outpatient (CLI) | payer OTHER, BC | LOC: HYPER 14:02 | DX: T81.31XD Disruption of external operation (surgical) wound, not elsewhere classified, subsequent encounter (principal); L02.31 Cutaneous abscess of buttock; L98.412 Non-pressure chronic ulcer of buttock with fat layer exposed; G43.909 Migraine, unspecified, not intractable, without status migrainosus; G62.9 Polyneuropathy, unspecified; K21.9 Gastro-esophageal reflux disease without esophagitis; F41.9 Anxiety disorder, unspecified; F32.9 Major depressive disorder, single episode, unspecified; Z90.49 Acquired absence of other specified parts of digestive tract; Y83.8 Other surgical procedures as the cause of abnormal reaction of the patient, or of later complication, without mention of misadventure at the time of the procedure ==

== ENCOUNTER → 2019-12-27 | Outpatient (CLI) | payer OTHER, BC | LOC: HYPER 09:23 | DX: T81.31XD Disruption of external operation (surgical) wound, not elsewhere classified, subsequent encounter (principal); L98.412 Non-pressure chronic ulcer of buttock with fat layer exposed; L02.31 Cutaneous abscess of buttock; K21.9 Gastro-esophageal reflux disease without esophagitis; G62.9 Polyneuropathy, unspecified; G47.00 Insomnia, unspecified; G43.909 Migraine, unspecified, not intractable, without status migrainosus; F41.9 Anxiety disorder, unspecified; F32.9 Major depressive disorder, single episode, unspecified; Z90.49 Acquired absence of other specified parts of digestive tract; Y83.8 Other surgical procedures as the cause of abnormal reaction of the patient, or of later complication, without mention of misadventure at the time of the procedure ==

== ENCOUNTER → 2020-01-03 | Outpatient (CLI) | payer OTHER, BC | LOC: HYPER 15:13 | DX: T81.31XD Disruption of external operation (surgical) wound, not elsewhere classified, subsequent encounter (principal); L98.412 Non-pressure chronic ulcer of buttock with fat layer exposed; L02.31 Cutaneous abscess of buttock; G43.909 Migraine, unspecified, not intractable, without status migrainosus; G62.9 Polyneuropathy, unspecified; G47.00 Insomnia, unspecified; K21.9 Gastro-esophageal reflux disease without esophagitis; F41.9 Anxiety disorder, unspecified; F32.9 Major depressive disorder, single episode, unspecified; Z90.49 Acquired absence of other specified parts of digestive tract; Y83.8 Other surgical procedures as the cause of abnormal reaction of the patient, or of later complication, without mention of misadventure at the time of the procedure ==

== ENCOUNTER → 2020-01-11 | Outpatient (CLI) | payer OTHER, BC | LOC: HYPER 14:17 | DX: T81.31XD Disruption of external operation (surgical) wound, not elsewhere classified, subsequent encounter (principal); L98.412 Non-pressure chronic ulcer of buttock with fat layer exposed; L02.31 Cutaneous abscess of buttock; G43.909 Migraine, unspecified, not intractable, without status migrainosus; K21.9 Gastro-esophageal reflux disease without esophagitis; F32.9 Major depressive disorder, single episode, unspecified; F41.9 Anxiety disorder, unspecified; Z90.49 Acquired absence of other specified parts of digestive tract; Y83.8 Other surgical procedures as the cause of abnormal reaction of the patient, or of later complication, without mention of misadventure at the time of the procedure ==

== ENCOUNTER → 2020-01-25 | Outpatient (CLI) | payer OTHER, BC | LOC: HYPER 15:04 | DX: T81.31XD Disruption of external operation (surgical) wound, not elsewhere classified, subsequent encounter (principal); L02.31 Cutaneous abscess of buttock; L98.412 Non-pressure chronic ulcer of buttock with fat layer exposed; G43.909 Migraine, unspecified, not intractable, without status migrainosus; G47.00 Insomnia, unspecified; G62.9 Polyneuropathy, unspecified; K21.9 Gastro-esophageal reflux disease without esophagitis; F32.9 Major depressive disorder, single episode, unspecified; F41.9 Anxiety disorder, unspecified; Z90.49 Acquired absence of other specified parts of digestive tract; Y83.8 Other surgical procedures as the cause of abnormal reaction of the patient, or of later complication, without mention of misadventure at the time of the procedure ==

== ENCOUNTER → 2020-02-08 | Outpatient (CLI) | payer OTHER, BC | LOC: HYPER 11:03 | DX: T81.31XD Disruption of external operation (surgical) wound, not elsewhere classified, subsequent encounter (principal); L98.412 Non-pressure chronic ulcer of buttock with fat layer exposed; L02.31 Cutaneous abscess of buttock; G43.909 Migraine, unspecified, not intractable, without status migrainosus; G62.9 Polyneuropathy, unspecified; K21.9 Gastro-esophageal reflux disease without esophagitis; F41.9 Anxiety disorder, unspecified; F32.9 Major depressive disorder, single episode, unspecified; Z90.49 Acquired absence of other specified parts of digestive tract; Y83.8 Other surgical procedures as the cause of abnormal reaction of the patient, or of later complication, without mention of misadventure at the time of the procedure ==

== ENCOUNTER → 2020-02-22 | Outpatient (CLI) | payer OTHER, BC | LOC: HYPER 14:34 | DX: T81.31XD Disruption of external operation (surgical) wound, not elsewhere classified, subsequent encounter (principal); L02.31 Cutaneous abscess of buttock; L98.412 Non-pressure chronic ulcer of buttock with fat layer exposed; L84 Corns and callosities; G43.909 Migraine, unspecified, not intractable, without status migrainosus; G62.9 Polyneuropathy, unspecified; G47.00 Insomnia, unspecified; K21.9 Gastro-esophageal reflux disease without esophagitis; F41.0 Panic disorder [episodic paroxysmal anxiety]; F41.9 Anxiety disorder, unspecified; F32.9 Major depressive disorder, single episode, unspecified; Z90.49 Acquired absence of other specified parts of digestive tract; Y83.8 Other surgical procedures as the cause of abnormal reaction of the patient, or of later complication, without mention of misadventure at the time of the procedure ==

== ENCOUNTER → 2020-03-06 | Outpatient (CLI) | payer OTHER, BC | LOC: HYPER 08:13 | PROVIDERS: ATTEND Emergency Medicine | DX: T81.31XD Disruption of external operation (surgical) wound, not elsewhere classified, subsequent encounter (principal); L02.31 Cutaneous abscess of buttock; L98.412 Non-pressure chronic ulcer of buttock with fat layer exposed; L84 Corns and callosities; G43.909 Migraine, unspecified, not intractable, without status migrainosus; G62.9 Polyneuropathy, unspecified; K21.9 Gastro-esophageal reflux disease without esophagitis; F41.0 Panic disorder [episodic paroxysmal anxiety]; F41.9 Anxiety disorder, unspecified; F32.9 Major depressive disorder, single episode, unspecified; Z90.49 Acquired absence of other specified parts of digestive tract; Y83.8 Other surgical procedures as the cause of abnormal reaction of the patient, or of later complication, without mention of misadventure at the time of the procedure ==

== ENCOUNTER → 2020-03-20 | Outpatient (CLI) | payer OTHER, BC | LOC: HYPER 08:03 | PROVIDERS: ATTEND Emergency Medicine | DX: T81.31XD Disruption of external operation (surgical) wound, not elsewhere classified, subsequent encounter (principal); L98.412 Non-pressure chronic ulcer of buttock with fat layer exposed; L02.31 Cutaneous abscess of buttock; G62.9 Polyneuropathy, unspecified; G43.909 Migraine, unspecified, not intractable, without status migrainosus; F41.9 Anxiety disorder, unspecified; F32.9 Major depressive disorder, single episode, unspecified; Z90.49 Acquired absence of other specified parts of digestive tract; Y83.8 Other surgical procedures as the cause of abnormal reaction of the patient, or of later complication, without mention of misadventure at the time of the procedure ==

== ENCOUNTER → 2020-03-27 | Outpatient (CLI) | payer OTHER, BC | LOC: HYPER 11:17 | PROVIDERS: ATTEND Emergency Medicine Emergency Medical Services | DX: T81.31XD Disruption of external operation (surgical) wound, not elsewhere classified, subsequent encounter (principal); L98.412 Non-pressure chronic ulcer of buttock with fat layer exposed; L02.31 Cutaneous abscess of buttock; S80.862A Insect bite (nonvenomous), left lower leg, initial encounter; L84 Corns and callosities; G43.909 Migraine, unspecified, not intractable, without status migrainosus; G62.9 Polyneuropathy, unspecified; K21.9 Gastro-esophageal reflux disease without esophagitis; F41.9 Anxiety disorder, unspecified; F32.9 Major depressive disorder, single episode, unspecified; Z90.49 Acquired absence of other specified parts of digestive tract; Y83.8 Other surgical procedures as the cause of abnormal reaction of the patient, or of later complication, without mention of misadventure at the time of the procedure ==

== ENCOUNTER → 2020-04-03 | Outpatient (CLI) | payer OTHER, BC | LOC: HYPER 11:17 | PROVIDERS: ATTEND Emergency Medicine | DX: T81.31XD Disruption of external operation (surgical) wound, not elsewhere classified, subsequent encounter (principal); L98.412 Non-pressure chronic ulcer of buttock with fat layer exposed; S80.862D Insect bite (nonvenomous), left lower leg, subsequent encounter; L02.31 Cutaneous abscess of buttock; L84 Corns and callosities; G62.9 Polyneuropathy, unspecified; G43.909 Migraine, unspecified, not intractable, without status migrainosus; K21.9 Gastro-esophageal reflux disease without esophagitis; F41.9 Anxiety disorder, unspecified; F32.9 Major depressive disorder, single episode, unspecified; Z90.49 Acquired absence of other specified parts of digestive tract ==

== ENCOUNTER → 2020-04-10 | Outpatient (CLI) | payer OTHER, BC ==
[~2020-04-10] MED LIST changes: +DIPHENHYDR50 MG/1 M2 IM; -DIPHENHYDR50 MG/1 ML IM; +GENTAMICIN SULFA NASAL; +INTRAT INTRATHECA; +LOTRIMIN AF12 GM TOP; -LOTRISONE CREAM15 GM TP; +MUPIROCIN NASAL; -PROTONIX40 M1 PO; +PROTONIX40 M4 PO; +ZOFRAN ODT4 MG DISSOLVE; -ZOFRAN8 MG PO
== END ==
LOC: HYPER 12:02
PROVIDERS: ATTEND Emergency Medicine
DX: T81.31XD Disruption of external operation (surgical) wound, not elsewhere classified, subsequent encounter (principal); L98.412 Non-pressure chronic ulcer of buttock with fat layer exposed; S80.862D Insect bite (nonvenomous), left lower leg, subsequent encounter; L02.31 Cutaneous abscess of buttock; L84 Corns and callosities; G62.9 Polyneuropathy, unspecified; G43.909 Migraine, unspecified, not intractable, without status migrainosus; K21.9 Gastro-esophageal reflux disease without esophagitis; F41.9 Anxiety disorder, unspecified; F32.9 Major depressive disorder, single episode, unspecified; Z90.49 Acquired absence of other specified parts of digestive tract; W57.XXXD Bitten or stung by nonvenomous insect and other nonvenomous arthropods, subsequent encounter; Y83.8 Other surgical procedures as the cause of abnormal reaction of the patient, or of later complication, without mention of misadventure at the time of the procedure

== ENCOUNTER → 2020-04-17 | Outpatient (CLI) | payer OTHER, BC ==
[~2020-04-17] MED LIST changes: -DIPHENHYDR50 MG/1 M2 IM; +DIPHENHYDR50 MG/1 ML IM; -GENTAMICIN SULFA NASAL; -INTRAT INTRATHECA; -LOTRIMIN AF12 GM TOP; +LOTRISONE CREAM15 GM TP; -MUPIROCIN NASAL; +PROTONIX40 M1 PO; -PROTONIX40 M4 PO; -ZOFRAN ODT4 MG DISSOLVE; +ZOFRAN8 MG PO
== END ==
LOC: HYPER 10:17
PROVIDERS: ATTEND Emergency Medicine
DX: T81.31XD Disruption of external operation (surgical) wound, not elsewhere classified, subsequent encounter (principal); L98.412 Non-pressure chronic ulcer of buttock with fat layer exposed; S80.862D Insect bite (nonvenomous), left lower leg, subsequent encounter; L02.31 Cutaneous abscess of buttock; G43.909 Migraine, unspecified, not intractable, without status migrainosus; F41.9 Anxiety disorder, unspecified; F32.9 Major depressive disorder, single episode, unspecified; Z90.49 Acquired absence of other specified parts of digestive tract; W57.XXXD Bitten or stung by nonvenomous insect and other nonvenomous arthropods, subsequent encounter; Y83.8 Other surgical procedures as the cause of abnormal reaction of the patient, or of later complication, without mention of misadventure at the time of the procedure

== ENCOUNTER → 2020-05-01 | Outpatient (CLI) | payer OTHER, BC | LOC: HYPER 08:03 | PROVIDERS: ATTEND Emergency Medicine | DX: T81.31XD Disruption of external operation (surgical) wound, not elsewhere classified, subsequent encounter (principal); L98.412 Non-pressure chronic ulcer of buttock with fat layer exposed; L02.31 Cutaneous abscess of buttock; S80.862D Insect bite (nonvenomous), left lower leg, subsequent encounter; G43.909 Migraine, unspecified, not intractable, without status migrainosus; G62.9 Polyneuropathy, unspecified; K21.9 Gastro-esophageal reflux disease without esophagitis; F41.9 Anxiety disorder, unspecified; F32.9 Major depressive disorder, single episode, unspecified; Z90.49 Acquired absence of other specified parts of digestive tract; Y83.8 Other surgical procedures as the cause of abnormal reaction of the patient, or of later complication, without mention of misadventure at the time of the procedure ==

== ENCOUNTER → 2020-05-08 | Outpatient (CLI) | payer OTHER, BC | LOC: HYPER 08:44 | PROVIDERS: ATTEND Emergency Medicine Emergency Medical Services | DX: T81.31XD Disruption of external operation (surgical) wound, not elsewhere classified, subsequent encounter (principal); L98.412 Non-pressure chronic ulcer of buttock with fat layer exposed; L02.31 Cutaneous abscess of buttock; S80.862D Insect bite (nonvenomous), left lower leg, subsequent encounter; G43.909 Migraine, unspecified, not intractable, without status migrainosus; G62.9 Polyneuropathy, unspecified; K21.9 Gastro-esophageal reflux disease without esophagitis; F41.9 Anxiety disorder, unspecified; F32.9 Major depressive disorder, single episode, unspecified; Z90.49 Acquired absence of other specified parts of digestive tract; W57.XXXD Bitten or stung by nonvenomous insect and other nonvenomous arthropods, subsequent encounter; Y83.8 Other surgical procedures as the cause of abnormal reaction of the patient, or of later complication, without mention of misadventure at the time of the procedure ==

== ENCOUNTER → 2020-05-15 | Outpatient (CLI) | payer OTHER, BC | LOC: HYPER 14:48 | PROVIDERS: ATTEND Emergency Medicine | DX: T81.31XD Disruption of external operation (surgical) wound, not elsewhere classified, subsequent encounter (principal); L98.412 Non-pressure chronic ulcer of buttock with fat layer exposed; S80.862D Insect bite (nonvenomous), left lower leg, subsequent encounter; L02.31 Cutaneous abscess of buttock; G43.909 Migraine, unspecified, not intractable, without status migrainosus; G62.9 Polyneuropathy, unspecified; K21.9 Gastro-esophageal reflux disease without esophagitis; F41.9 Anxiety disorder, unspecified; F32.9 Major depressive disorder, single episode, unspecified; Z90.49 Acquired absence of other specified parts of digestive tract; Y83.8 Other surgical procedures as the cause of abnormal reaction of the patient, or of later complication, without mention of misadventure at the time of the procedure ==

== ENCOUNTER → 2020-05-22 | Outpatient (CLI) | payer OTHER, BC | LOC: HYPER 14:58 | PROVIDERS: ATTEND Emergency Medicine | DX: T81.31XD Disruption of external operation (surgical) wound, not elsewhere classified, subsequent encounter (principal); L02.31 Cutaneous abscess of buttock; L98.412 Non-pressure chronic ulcer of buttock with fat layer exposed; L84 Corns and callosities; S80.862D Insect bite (nonvenomous), left lower leg, subsequent encounter; G43.909 Migraine, unspecified, not intractable, without status migrainosus; G62.9 Polyneuropathy, unspecified; K21.9 Gastro-esophageal reflux disease without esophagitis; F41.9 Anxiety disorder, unspecified; F32.9 Major depressive disorder, single episode, unspecified; Z90.49 Acquired absence of other specified parts of digestive tract; Y83.8 Other surgical procedures as the cause of abnormal reaction of the patient, or of later complication, without mention of misadventure at the time of the procedure ==

== ENCOUNTER → 2020-06-05 | Outpatient (CLI) | payer OTHER, BC | LOC: HYPER 15:24 | PROVIDERS: ATTEND Emergency Medicine | DX: T81.31XD Disruption of external operation (surgical) wound, not elsewhere classified, subsequent encounter (principal); L98.412 Non-pressure chronic ulcer of buttock with fat layer exposed; S80.862D Insect bite (nonvenomous), left lower leg, subsequent encounter; L02.31 Cutaneous abscess of buttock; L84 Corns and callosities; G43.909 Migraine, unspecified, not intractable, without status migrainosus; G62.9 Polyneuropathy, unspecified; K21.9 Gastro-esophageal reflux disease without esophagitis; F41.9 Anxiety disorder, unspecified; F32.9 Major depressive disorder, single episode, unspecified; Z90.49 Acquired absence of other specified parts of digestive tract; X58.XXXD Exposure to other specified factors, subsequent encounter; Y83.8 Other surgical procedures as the cause of abnormal reaction of the patient, or of later complication, without mention of misadventure at the time of the procedure ==

== ENCOUNTER → 2020-06-19 | Outpatient (CLI) | payer OTHER, BC | LOC: HYPER 14:51 | PROVIDERS: ATTEND Emergency Medicine | DX: T81.31XD Disruption of external operation (surgical) wound, not elsewhere classified, subsequent encounter (principal); L98.412 Non-pressure chronic ulcer of buttock with fat layer exposed; S80.262D Insect bite (nonvenomous), left knee, subsequent encounter; L84 Corns and callosities; L02.31 Cutaneous abscess of buttock; G43.909 Migraine, unspecified, not intractable, without status migrainosus; G62.9 Polyneuropathy, unspecified; K21.9 Gastro-esophageal reflux disease without esophagitis; F41.9 Anxiety disorder, unspecified; F32.9 Major depressive disorder, single episode, unspecified; Z90.49 Acquired absence of other specified parts of digestive tract; Y83.8 Other surgical procedures as the cause of abnormal reaction of the patient, or of later complication, without mention of misadventure at the time of the procedure ==

== ENCOUNTER → 2020-07-03 | Outpatient (CLI) | payer OTHER, BC | LOC: HYPER 15:01 | PROVIDERS: ATTEND Emergency Medicine | DX: T81.31XD Disruption of external operation (surgical) wound, not elsewhere classified, subsequent encounter (principal); L98.412 Non-pressure chronic ulcer of buttock with fat layer exposed; S80.862D Insect bite (nonvenomous), left lower leg, subsequent encounter; L02.31 Cutaneous abscess of buttock; L84 Corns and callosities; G43.909 Migraine, unspecified, not intractable, without status migrainosus; G62.9 Polyneuropathy, unspecified; E66.9 Obesity, unspecified; K21.9 Gastro-esophageal reflux disease without esophagitis; F41.9 Anxiety disorder, unspecified; F32.9 Major depressive disorder, single episode, unspecified; Z90.49 Acquired absence of other specified parts of digestive tract; Z68.27 Body mass index [BMI] 27.0-27.9, adult; Y83.8 Other surgical procedures as the cause of abnormal reaction of the patient, or of later complication, without mention of misadventure at the time of the procedure ==

== ENCOUNTER → 2020-07-17 | Outpatient (CLI) | payer OTHER, BC | LOC: HYPER 09:27 | PROVIDERS: ATTEND Emergency Medicine | DX: T81.31XD Disruption of external operation (surgical) wound, not elsewhere classified, subsequent encounter (principal); L98.412 Non-pressure chronic ulcer of buttock with fat layer exposed; S80.862D Insect bite (nonvenomous), left lower leg, subsequent encounter; L02.31 Cutaneous abscess of buttock; L84 Corns and callosities; E66.9 Obesity, unspecified; G62.9 Polyneuropathy, unspecified; G47.00 Insomnia, unspecified; G43.909 Migraine, unspecified, not intractable, without status migrainosus; K21.9 Gastro-esophageal reflux disease without esophagitis; F41.9 Anxiety disorder, unspecified; F32.9 Major depressive disorder, single episode, unspecified; Z68.27 Body mass index [BMI] 27.0-27.9, adult; Z90.49 Acquired absence of other specified parts of digestive tract; W57.XXXD Bitten or stung by nonvenomous insect and other nonvenomous arthropods, subsequent encounter ==

== ENCOUNTER → 2020-07-31 | Outpatient (CLI) | payer OTHER, BC ==
[2020-07-31 09:15] VITALS: BP 123/70
[2020-08-01 01:06] LABS: CORTISOL 30 MIN 21.5 ug/dL (Not Estab.); CORTISOL 60 MIN 25.3 ug/dL (Not Estab.); CORTISOL BASELINE 4.9 ug/dL (())
== END ==
LOC: OPONC 08:46
PROVIDERS: ATTEND Internal Medicine
DX: E27.1 Primary adrenocortical insufficiency (principal)
CPT/HCPCS: 95113

== ENCOUNTER → 2020-08-05 | Outpatient (CLI) | payer OTHER, BC | LOC: HYPER 09:08 | PROVIDERS: ATTEND Emergency Medicine | DX: T81.31XD Disruption of external operation (surgical) wound, not elsewhere classified, subsequent encounter (principal); L98.412 Non-pressure chronic ulcer of buttock with fat layer exposed; S80.862D Insect bite (nonvenomous), left lower leg, subsequent encounter; L02.31 Cutaneous abscess of buttock; G43.909 Migraine, unspecified, not intractable, without status migrainosus; F41.9 Anxiety disorder, unspecified; F32.9 Major depressive disorder, single episode, unspecified; Z90.49 Acquired absence of other specified parts of digestive tract; Y83.8 Other surgical procedures as the cause of abnormal reaction of the patient, or of later complication, without mention of misadventure at the time of the procedure; W57.XXXD Bitten or stung by nonvenomous insect and other nonvenomous arthropods, subsequent encounter ==

== ENCOUNTER → 2020-08-15 | Outpatient (CLI) | payer OTHER, BC | LOC: HYPER 14:55 | PROVIDERS: ATTEND Emergency Medicine | DX: T81.31XD Disruption of external operation (surgical) wound, not elsewhere classified, subsequent encounter (principal); L98.412 Non-pressure chronic ulcer of buttock with fat layer exposed; L84 Corns and callosities; S80.862D Insect bite (nonvenomous), left lower leg, subsequent encounter; L02.31 Cutaneous abscess of buttock; G43.909 Migraine, unspecified, not intractable, without status migrainosus; G62.9 Polyneuropathy, unspecified; G47.00 Insomnia, unspecified; E66.9 Obesity, unspecified; K21.9 Gastro-esophageal reflux disease without esophagitis; F41.9 Anxiety disorder, unspecified; F32.9 Major depressive disorder, single episode, unspecified; Z90.49 Acquired absence of other specified parts of digestive tract; Z68.27 Body mass index [BMI] 27.0-27.9, adult; W57.XXXD Bitten or stung by nonvenomous insect and other nonvenomous arthropods, subsequent encounter; Y83.8 Other surgical procedures as the cause of abnormal reaction of the patient, or of later complication, without mention of misadventure at the time of the procedure ==

== ENCOUNTER → 2020-08-29 | Outpatient (CLI) | payer OTHER, BC ==
[~2020-08-29] MED LIST changes: +DIPHENHYDR50 MG/1 M2 IM; -DIPHENHYDR50 MG/1 ML IM; +GENTAMICIN SULFA NASAL; +INTRAT INTRATHECA; +LOTRIMIN AF12 GM TOP; -LOTRISONE CREAM15 GM TP; +MUPIROCIN NASAL; -PROTONIX40 M1 PO; +PROTONIX40 M4 PO; +ZOFRAN ODT4 MG DISSOLVE; -ZOFRAN8 MG PO
== END ==
LOC: HYPER 15:03
PROVIDERS: ATTEND Emergency Medicine
DX: T81.31XD Disruption of external operation (surgical) wound, not elsewhere classified, subsequent encounter (principal); L98.412 Non-pressure chronic ulcer of buttock with fat layer exposed; S80.862D Insect bite (nonvenomous), left lower leg, subsequent encounter; L02.31 Cutaneous abscess of buttock; G62.9 Polyneuropathy, unspecified; G43.909 Migraine, unspecified, not intractable, without status migrainosus; F41.9 Anxiety disorder, unspecified; F32.9 Major depressive disorder, single episode, unspecified; Z90.49 Acquired absence of other specified parts of digestive tract; X58.XXXD Exposure to other specified factors, subsequent encounter; Y83.8 Other surgical procedures as the cause of abnormal reaction of the patient, or of later complication, without mention of misadventure at the time of the procedure

== ENCOUNTER → 2020-08-29 | Outpatient (CLI) | payer OTHER, BC | LOC: LAB 09:41 | PROVIDERS: ATTEND Surgery | DX: Z01.812 Encounter for preprocedural laboratory examination (principal); Z20.828 Contact with and (suspected) exposure to other viral communicable diseases ==

== ENCOUNTER 2020-08-30 10:25 | Day surgery (SDC) | payer OTHER, BC ==
[~2020-08-30] VITALS: Ht 154.9 cm; Wt 53.1 kg
[2020-08-30 12:30] VITALS: BP 137/89
[2020-08-30 13:58] VITALS: BP 137/89
--- NOTE | 2020-09-15 11:14 | O ---
[facility] [place] [address] OPERATIVE REPORT Name: YEN MARSHALL Room #: [facility]#: [id number] Admission: 08/30/20 Attend Phys: Rasta De Los Santos, Discharge: 08/30/20 Date of : 78 Report #: [id number] THIS REPORT FOR: cc: FAM - No family physician/PCP FAM - No family physician/PCP Rasta De Los Santos MD ~ DATE OF SERVICE: 08/30/2020 PREOPERATIVE DIAGNOSIS: Right thigh foreign body. POSTOPERATIVE DIAGNOSIS: Right thigh foreign body. OPERATION: Excision of right thigh foreign body. SURGEON: Rasta De Los Santos MD ANESTHESIA: General. ESTIMATED BLOOD LOSS: Minimal. SPECIMEN: Right thigh foreign body. DESCRIPTION OF PROCEDURE: After informed consent was obtained, the patient was brought to the operating room and placed supine. SCDs were placed and working, preoperative antibiotics were administered, general anesthesia was induced. The right thigh was prepped and draped in the usual sterile fashion. There was a small opening where the needle had gone through. I extended this incision approximately 2 cm. I was able to dissect down deep and there was indeed a needle that was approximately 2.5 cm long. This was removed. Given the high risk for infection, the area was not closed and instead it was packed with sterile gauze. Sterile dressings were applied. COMPLICATIONS: None. DISPOSITION: The patient was taken to recovery in satisfactory condition. <ELECTRONICALLY SIGNED> By: Rasta De Los Santos MD 09/15/20 1114 [id number] Rasta De Los Santos MD /nt
== END 2020-08-30 14:15 | disposition home or self-care (01) ==
LOC: OR 10:25 → TBA 10:30 → OR 11:17
PROVIDERS: ATTEND Surgery
DX: S71.141A Puncture wound with foreign body, right thigh, initial encounter (principal); D64.9 Anemia, unspecified; J32.9 Chronic sinusitis, unspecified; G43.909 Migraine, unspecified, not intractable, without status migrainosus; K21.9 Gastro-esophageal reflux disease without esophagitis; Z98.890 Other specified postprocedural states; Z79.899 Other long term (current) drug therapy; Z90.49 Acquired absence of other specified parts of digestive tract; Z87.442 Personal history of urinary calculi; Z91.040 Latex allergy status; W45.8XXA Other foreign body or object entering through skin, initial encounter; Y93.89 Activity, other specified; Y92.89 Other specified places as the place of occurrence of the external cause; Y99.8 Other external cause status
CPT/HCPCS: 50010; 50101; 50386; 50403; 62110; 62900; 70005

== ENCOUNTER → 2020-09-04 | Outpatient (CLI) | payer OTHER, BC | LOC: HYPER 14:49 | PROVIDERS: ATTEND Emergency Medicine | DX: T81.31XD Disruption of external operation (surgical) wound, not elsewhere classified, subsequent encounter (principal); L98.412 Non-pressure chronic ulcer of buttock with fat layer exposed; L97.112 Non-pressure chronic ulcer of right thigh with fat layer exposed; L02.31 Cutaneous abscess of buttock; L84 Corns and callosities; G43.909 Migraine, unspecified, not intractable, without status migrainosus; G62.9 Polyneuropathy, unspecified; G47.00 Insomnia, unspecified; E66.9 Obesity, unspecified; K21.9 Gastro-esophageal reflux disease without esophagitis; F41.9 Anxiety disorder, unspecified; F32.9 Major depressive disorder, single episode, unspecified; Z90.49 Acquired absence of other specified parts of digestive tract; Z68.27 Body mass index [BMI] 27.0-27.9, adult; Y83.8 Other surgical procedures as the cause of abnormal reaction of the patient, or of later complication, without mention of misadventure at the time of the procedure ==

== ENCOUNTER → 2020-09-12 | Outpatient (CLI) | payer OTHER, BC | LOC: HYPER 15:00 | PROVIDERS: ATTEND Emergency Medicine | DX: T81.31XD Disruption of external operation (surgical) wound, not elsewhere classified, subsequent encounter (principal); L98.412 Non-pressure chronic ulcer of buttock with fat layer exposed; L97.112 Non-pressure chronic ulcer of right thigh with fat layer exposed; L02.31 Cutaneous abscess of buttock; L84 Corns and callosities; G43.909 Migraine, unspecified, not intractable, without status migrainosus; G62.9 Polyneuropathy, unspecified; G47.00 Insomnia, unspecified; E66.9 Obesity, unspecified; K21.9 Gastro-esophageal reflux disease without esophagitis; F41.9 Anxiety disorder, unspecified; F32.9 Major depressive disorder, single episode, unspecified; Z90.49 Acquired absence of other specified parts of digestive tract; Z68.27 Body mass index [BMI] 27.0-27.9, adult; Y83.8 Other surgical procedures as the cause of abnormal reaction of the patient, or of later complication, without mention of misadventure at the time of the procedure ==

== ENCOUNTER → 2020-10-01 | Outpatient (CLI) | payer OTHER, BC | LOC: HYPER 15:03 | PROVIDERS: ATTEND Emergency Medicine | DX: T81.31XD Disruption of external operation (surgical) wound, not elsewhere classified, subsequent encounter (principal); L98.412 Non-pressure chronic ulcer of buttock with fat layer exposed; L97.112 Non-pressure chronic ulcer of right thigh with fat layer exposed; S80.812A Abrasion, left lower leg, initial encounter; L02.31 Cutaneous abscess of buttock; L84 Corns and callosities; G43.909 Migraine, unspecified, not intractable, without status migrainosus; G62.9 Polyneuropathy, unspecified; G47.00 Insomnia, unspecified; E66.9 Obesity, unspecified; K21.9 Gastro-esophageal reflux disease without esophagitis; F41.9 Anxiety disorder, unspecified; F32.9 Major depressive disorder, single episode, unspecified; Z90.49 Acquired absence of other specified parts of digestive tract; Z68.27 Body mass index [BMI] 27.0-27.9, adult; X58.XXXA Exposure to other specified factors, initial encounter; Y93.89 Activity, other specified; Y92.89 Other specified places as the place of occurrence of the external cause; Y99.8 Other external cause status; Y83.8 Other surgical procedures as the cause of abnormal reaction of the patient, or of later complication, without mention of misadventure at the time of the procedure ==

== ENCOUNTER → 2020-10-17 | Outpatient (CLI) | payer OTHER, BC | LOC: HYPER 15:12 | PROVIDERS: ATTEND Emergency Medicine | DX: S30.810A Abrasion of lower back and pelvis, initial encounter (principal); S80.811D Abrasion, right lower leg, subsequent encounter; L02.31 Cutaneous abscess of buttock; L98.412 Non-pressure chronic ulcer of buttock with fat layer exposed; L97.112 Non-pressure chronic ulcer of right thigh with fat layer exposed; G43.909 Migraine, unspecified, not intractable, without status migrainosus; F41.9 Anxiety disorder, unspecified; F32.9 Major depressive disorder, single episode, unspecified; Z90.49 Acquired absence of other specified parts of digestive tract; X58.XXXA Exposure to other specified factors, initial encounter; X58.XXXD Exposure to other specified factors, subsequent encounter; Y93.89 Activity, other specified; Y92.89 Other specified places as the place of occurrence of the external cause; Y99.8 Other external cause status ==

== ENCOUNTER → 2020-10-31 | Outpatient (CLI) | payer OTHER, BC | LOC: HYPER 11:42 | PROVIDERS: ATTEND Emergency Medicine | DX: T81.31XD Disruption of external operation (surgical) wound, not elsewhere classified, subsequent encounter (principal); S30.810D Abrasion of lower back and pelvis, subsequent encounter; S80.811D Abrasion, right lower leg, subsequent encounter; L02.31 Cutaneous abscess of buttock; L98.412 Non-pressure chronic ulcer of buttock with fat layer exposed; L97.112 Non-pressure chronic ulcer of right thigh with fat layer exposed; E66.9 Obesity, unspecified; G43.909 Migraine, unspecified, not intractable, without status migrainosus; K21.9 Gastro-esophageal reflux disease without esophagitis; F41.9 Anxiety disorder, unspecified; F32.9 Major depressive disorder, single episode, unspecified; Z68.27 Body mass index [BMI] 27.0-27.9, adult; Z90.49 Acquired absence of other specified parts of digestive tract; X58.XXXD Exposure to other specified factors, subsequent encounter; Y83.8 Other surgical procedures as the cause of abnormal reaction of the patient, or of later complication, without mention of misadventure at the time of the procedure ==

== ENCOUNTER → 2020-11-13 | Outpatient (CLI) | payer OTHER, BC | LOC: HYPER 11:50 | PROVIDERS: ATTEND Emergency Medicine | DX: T81.31XD Disruption of external operation (surgical) wound, not elsewhere classified, subsequent encounter (principal); S80.811D Abrasion, right lower leg, subsequent encounter; L02.31 Cutaneous abscess of buttock; L98.412 Non-pressure chronic ulcer of buttock with fat layer exposed; L97.112 Non-pressure chronic ulcer of right thigh with fat layer exposed; E66.9 Obesity, unspecified; G43.909 Migraine, unspecified, not intractable, without status migrainosus; G62.9 Polyneuropathy, unspecified; K21.9 Gastro-esophageal reflux disease without esophagitis; F41.9 Anxiety disorder, unspecified; F32.9 Major depressive disorder, single episode, unspecified; Z68.27 Body mass index [BMI] 27.0-27.9, adult; Z90.49 Acquired absence of other specified parts of digestive tract; X58.XXXD Exposure to other specified factors, subsequent encounter; Y83.8 Other surgical procedures as the cause of abnormal reaction of the patient, or of later complication, without mention of misadventure at the time of the procedure ==

== ENCOUNTER → 2020-11-28 | Outpatient (CLI) | payer OTHER, BC | LOC: HYPER 15:03 | PROVIDERS: ATTEND Emergency Medicine | DX: T81.31XD Disruption of external operation (surgical) wound, not elsewhere classified, subsequent encounter (principal); S80.811D Abrasion, right lower leg, subsequent encounter; L02.31 Cutaneous abscess of buttock; L98.412 Non-pressure chronic ulcer of buttock with fat layer exposed; L97.112 Non-pressure chronic ulcer of right thigh with fat layer exposed; E66.9 Obesity, unspecified; G43.909 Migraine, unspecified, not intractable, without status migrainosus; G62.9 Polyneuropathy, unspecified; K21.9 Gastro-esophageal reflux disease without esophagitis; F41.9 Anxiety disorder, unspecified; F32.9 Major depressive disorder, single episode, unspecified; Z68.27 Body mass index [BMI] 27.0-27.9, adult; Z90.49 Acquired absence of other specified parts of digestive tract; X58.XXXD Exposure to other specified factors, subsequent encounter; Y83.8 Other surgical procedures as the cause of abnormal reaction of the patient, or of later complication, without mention of misadventure at the time of the procedure ==

== ENCOUNTER → 2021-07-08 | Outpatient (CLI) | payer OTHER, BC | LOC: HYPER 15:10 | PROVIDERS: ATTEND Emergency Medicine | DX: S71.112A Laceration without foreign body, left thigh, initial encounter (principal); S79.922A Unspecified injury of left thigh, initial encounter; S71.132A Puncture wound without foreign body, left thigh, initial encounter; G90.09 Other idiopathic peripheral autonomic neuropathy; G43.909 Migraine, unspecified, not intractable, without status migrainosus; K21.9 Gastro-esophageal reflux disease without esophagitis; G47.00 Insomnia, unspecified; J32.8 Other chronic sinusitis; Z79.899 Other long term (current) drug therapy; Z98.890 Other specified postprocedural states; Z90.49 Acquired absence of other specified parts of digestive tract; X58.XXXA Exposure to other specified factors, initial encounter; Y93.89 Activity, other specified; Y92.89 Other specified places as the place of occurrence of the external cause; Y99.8 Other external cause status ==

== ENCOUNTER → 2021-07-24 | Outpatient (CLI) | payer OTHER, BC | LOC: HYPER 10:33 | PROVIDERS: ATTEND Emergency Medicine | DX: S71.132D Puncture wound without foreign body, left thigh, subsequent encounter (principal); S71.112D Laceration without foreign body, left thigh, subsequent encounter; S79.922D Unspecified injury of left thigh, subsequent encounter; G90.09 Other idiopathic peripheral autonomic neuropathy; K21.9 Gastro-esophageal reflux disease without esophagitis; J32.8 Other chronic sinusitis; G43.909 Migraine, unspecified, not intractable, without status migrainosus; G47.00 Insomnia, unspecified; E66.9 Obesity, unspecified; Z68.27 Body mass index [BMI] 27.0-27.9, adult; Z90.49 Acquired absence of other specified parts of digestive tract; Z98.890 Other specified postprocedural states; Z79.899 Other long term (current) drug therapy; X58.XXXD Exposure to other specified factors, subsequent encounter ==

== ENCOUNTER → 2021-08-18 | Outpatient (CLI) | payer OTHER, BC | LOC: HYPER 08:35 | PROVIDERS: ATTEND Emergency Medicine | DX: S71.112D Laceration without foreign body, left thigh, subsequent encounter (principal); S71.132D Puncture wound without foreign body, left thigh, subsequent encounter; G90.09 Other idiopathic peripheral autonomic neuropathy; K21.9 Gastro-esophageal reflux disease without esophagitis; J32.8 Other chronic sinusitis; G47.00 Insomnia, unspecified; G43.909 Migraine, unspecified, not intractable, without status migrainosus; E66.9 Obesity, unspecified; Z68.27 Body mass index [BMI] 27.0-27.9, adult; Z90.49 Acquired absence of other specified parts of digestive tract; Z98.890 Other specified postprocedural states; Z79.899 Other long term (current) drug therapy; W22.8XXD Striking against or struck by other objects, subsequent encounter ==

== ENCOUNTER → 2021-09-01 | Outpatient (CLI) | payer OTHER, BC | LOC: HYPER 09:00 | PROVIDERS: ATTEND Emergency Medicine | DX: S71.132D Puncture wound without foreign body, left thigh, subsequent encounter (principal); S71.112D Laceration without foreign body, left thigh, subsequent encounter; S71.101A Unspecified open wound, right thigh, initial encounter; G90.09 Other idiopathic peripheral autonomic neuropathy; K21.9 Gastro-esophageal reflux disease without esophagitis; J32.8 Other chronic sinusitis; G47.00 Insomnia, unspecified; G43.909 Migraine, unspecified, not intractable, without status migrainosus; E66.9 Obesity, unspecified; Z68.27 Body mass index [BMI] 27.0-27.9, adult; Z98.890 Other specified postprocedural states; Z79.899 Other long term (current) drug therapy; Z90.49 Acquired absence of other specified parts of digestive tract; X58.XXXD Exposure to other specified factors, subsequent encounter; X58.XXXA Exposure to other specified factors, initial encounter; Y93.89 Activity, other specified; Y92.89 Other specified places as the place of occurrence of the external cause; Y99.8 Other external cause status ==

== ENCOUNTER → 2021-09-15 | Outpatient (CLI) | payer OTHER, BC | LOC: HYPER 09:47 | PROVIDERS: ATTEND Emergency Medicine Emergency Medical Services | DX: S61.501A Unspecified open wound of right wrist, initial encounter (principal); S71.112D Laceration without foreign body, left thigh, subsequent encounter; S71.132D Puncture wound without foreign body, left thigh, subsequent encounter; G90.09 Other idiopathic peripheral autonomic neuropathy; K21.9 Gastro-esophageal reflux disease without esophagitis; J32.8 Other chronic sinusitis; G47.00 Insomnia, unspecified; E66.9 Obesity, unspecified; G43.909 Migraine, unspecified, not intractable, without status migrainosus; Z90.49 Acquired absence of other specified parts of digestive tract; Z98.890 Other specified postprocedural states; Z79.899 Other long term (current) drug therapy; X58.XXXD Exposure to other specified factors, subsequent encounter; X58.XXXA Exposure to other specified factors, initial encounter; Y93.89 Activity, other specified; Y92.89 Other specified places as the place of occurrence of the external cause; Y99.8 Other external cause status ==

== ENCOUNTER → 2021-09-29 | Outpatient (CLI) | payer OTHER, BC | LOC: HYPER 08:43 | PROVIDERS: ATTEND Emergency Medicine | DX: S61.501D Unspecified open wound of right wrist, subsequent encounter (principal); S71.112D Laceration without foreign body, left thigh, subsequent encounter; S71.132D Puncture wound without foreign body, left thigh, subsequent encounter; G90.09 Other idiopathic peripheral autonomic neuropathy; K21.9 Gastro-esophageal reflux disease without esophagitis; J32.8 Other chronic sinusitis; G47.00 Insomnia, unspecified; E66.9 Obesity, unspecified; G43.909 Migraine, unspecified, not intractable, without status migrainosus; Z90.49 Acquired absence of other specified parts of digestive tract; X58.XXXD Exposure to other specified factors, subsequent encounter ==

== ENCOUNTER → 2021-10-13 | Outpatient (CLI) | payer OTHER, BC | LOC: HYPER 10:13 | PROVIDERS: ATTEND Emergency Medicine | DX: S61.501D Unspecified open wound of right wrist, subsequent encounter (principal); S71.112D Laceration without foreign body, left thigh, subsequent encounter; S71.132D Puncture wound without foreign body, left thigh, subsequent encounter; G90.09 Other idiopathic peripheral autonomic neuropathy; K21.9 Gastro-esophageal reflux disease without esophagitis; J32.8 Other chronic sinusitis; G47.00 Insomnia, unspecified; E66.9 Obesity, unspecified; G43.909 Migraine, unspecified, not intractable, without status migrainosus; Z90.49 Acquired absence of other specified parts of digestive tract; Z68.27 Body mass index [BMI] 27.0-27.9, adult; X58.XXXD Exposure to other specified factors, subsequent encounter ==

== ENCOUNTER → 2021-10-27 | Outpatient (CLI) | payer OTHER, BC | LOC: HYPER 15:33 | PROVIDERS: ATTEND Emergency Medicine | DX: S61.501D Unspecified open wound of right wrist, subsequent encounter (principal); S71.112D Laceration without foreign body, left thigh, subsequent encounter; S71.132D Puncture wound without foreign body, left thigh, subsequent encounter; G90.09 Other idiopathic peripheral autonomic neuropathy; K21.9 Gastro-esophageal reflux disease without esophagitis; J32.8 Other chronic sinusitis; G47.00 Insomnia, unspecified; E66.9 Obesity, unspecified; G43.909 Migraine, unspecified, not intractable, without status migrainosus; Z90.49 Acquired absence of other specified parts of digestive tract; Z68.27 Body mass index [BMI] 27.0-27.9, adult; X58.XXXD Exposure to other specified factors, subsequent encounter ==

== ENCOUNTER → 2021-11-10 | Outpatient (CLI) | payer OTHER, BC | LOC: HYPER 11:13 | PROVIDERS: ATTEND Emergency Medicine | DX: S71.112D Laceration without foreign body, left thigh, subsequent encounter (principal); S71.132D Puncture wound without foreign body, left thigh, subsequent encounter; G90.09 Other idiopathic peripheral autonomic neuropathy; K21.9 Gastro-esophageal reflux disease without esophagitis; J32.8 Other chronic sinusitis; G47.00 Insomnia, unspecified; E66.9 Obesity, unspecified; G43.909 Migraine, unspecified, not intractable, without status migrainosus; Z90.49 Acquired absence of other specified parts of digestive tract; Z68.27 Body mass index [BMI] 27.0-27.9, adult; X58.XXXD Exposure to other specified factors, subsequent encounter ==

== ENCOUNTER → 2021-11-24 | Outpatient (CLI) | payer OTHER, BC | LOC: HYPER 15:18 | PROVIDERS: ATTEND Emergency Medicine | DX: S71.112D Laceration without foreign body, left thigh, subsequent encounter (principal); S71.132D Puncture wound without foreign body, left thigh, subsequent encounter; S71.101D Unspecified open wound, right thigh, subsequent encounter; S00.01XA Abrasion of scalp, initial encounter; G90.09 Other idiopathic peripheral autonomic neuropathy; K21.9 Gastro-esophageal reflux disease without esophagitis; J32.8 Other chronic sinusitis; G47.00 Insomnia, unspecified; E66.9 Obesity, unspecified; G43.909 Migraine, unspecified, not intractable, without status migrainosus; Z90.49 Acquired absence of other specified parts of digestive tract; Z68.27 Body mass index [BMI] 27.0-27.9, adult; X58.XXXD Exposure to other specified factors, subsequent encounter; X58.XXXA Exposure to other specified factors, initial encounter; Y93.89 Activity, other specified; Y92.89 Other specified places as the place of occurrence of the external cause; Y99.8 Other external cause status ==